=== PATIENT | male | born 1975 | race Caucasian/White ===

== ENCOUNTER 2018-02-04 10:18 | Emergency (ER) | payer OTHER ==
[2018-02-04] MEDS ORDERED: ACETAMINOPHEN 325 MG TAB PO ONE (10:44)
--- NOTE | 2018-02-04 10:54 | Emergency Department Record ---
History of Present Illness - General Chief Complaint: Neck Injury/Pain Stated Complaint: NECK PAIN Time Seen by Provider: 02/04/18 10:37 Source: Patient Mode of Arrival: Ambulatory Limitations: No limitations - History of Present Illness Initial Comments: The patient is here due to L sided neck pain for 3 days. The pain got worse in the last 24 hours so the patient felt that he needed to come to the ER. The pain is an aching pain that mainly occurs with turning the head to the sides R> L. He denies any FARMER, posterior neck pain, CP, SOB, TERRI, or sweating. The patient does have mild L arm numbness ONLY with lying on his L side with his L arm underneath him. There is no hx of weakness, numbness, tingling, injury to the arms or legs. The patient was concerned about the artery in his neck so he decided to come to the ER. MD Complaint: Neck pain Onset/Timin -: Days(s) Place: Home Radiation: Other Severity: Moderate Severity scale (1-10): 6 Quality: Aching Consistency: Constant Improves With: Remaining still Worsens With: Movement of neck Treatments Prior to Arrival: None - Related Data Allergies Allergy/AdvReac Type Severity Reaction Status Date / Time No Known Drug Allergies Allergy Verified 02/04/18 10:30 Travel Screening - Travel/Exposure Within Last 30 Days Have you traveled within the last 30 days?: No Review of Systems Constitutional: Denies: Chills, Fever Eyes: Denies: Eye discharge ENT: Denies: Congestion Respiratory: Denies: Cough, Dyspnea Past Medical History - SOCIAL HISTORY Smoking Status: Never smoker Alcohol Use: None Drug Use: None - RESPIRATORY Hx Respiratory Disorders: No - CARDIOVASCULAR Hx Cardio Disorders: No - NEURO Hx Neuro Disorders: No - GI Hx GI Disorders: No - Hx Genitourinary Disorders: No - ENDOCRINE Hx Endocrine Disorders: No - MUSCULOSKELETAL Hx Musculoskeletal Disorders: Yes - PSYCH Hx Psych Problems: No - HEMATOLOGY/ONCOLOGY Hx Hematology/Oncology Disorders: No Family Medical History Any Significant Family History?: No Hx Heart Disease: Father, Grandparents Physical Exam - General General Appearance: Alert, Oriented x3, Cooperative, No acute distress - Head Head exam: Atraumatic, Normocephalic, Normal inspection Image of Face/Head: 1 - Area of pain and tenderness. There is no swelling, bruising, or erythema appreciated. - Eye Eye exam: Normal appearance, PERRL - ENT Throat exam: Normal inspection. negative: Tonsillar erythema, Tonsillar exudate - Neck Neck exam: Normal inspection, Full ROM, Tenderness (The pain is 100% reproducible to palpation of the lateral cervical muscle areas with the main tenderness over the SCM muscle.). negative: Lymphadenopathy, Meningismus - Respiratory Respiratory exam: Normal lung sounds bilaterally. negative: Respiratory distress - Cardiovascular Cardiovascular Exam: Regular rate, Normal rhythm, Normal heart sounds. negative : Diastolic murmur, Systolic murmur - GI/Abdominal GI/Abdominal exam: Soft, Normal bowel sounds. negative: Tenderness - Extremities Extremities exam: Normal inspection, Full ROM, Normal capillary refill, Other ( Radial pulses 2+ and equal bilaterally.). negative: Tenderness - Neurological Neurological exam: Alert, Normal gait, Oriented X3. negative: Abnormal gait, Altered, Motor sensory deficit - Psychiatric Psychiatric exam: negative: Anxious - Skin Skin exam: negative: Rash Course Vital Signs 02/04/18 10:30 Temperature 97.9 F Pulse Rate 70 Respiratory 20 Rate Blood Pressure 141/88 Pulse Ox 99 Medical Decision Making - Data Complexity MDM Data: Labs Ordered and/or Reviewed, X-Ray Ordered and/or Reviewed, EKG Ordered and/or Reviewed - Lab Data Result diagrams: 02/04/18 11:06 02/04/18 11:06 - EKG Data -: EKG Interpreted by Me EKG: No Acute Changes, Normal EKG - Radiology Data Radiology results: Report reviewed (Carotid Dopplers: Normal per Rad.) Disposition Disposition: Discharge Clinical Impression: Neck pain on left side Disposition: Home, Self-Care Condition: (2) Stable Instructions: Muscle Strain (ED) Additional Instructions: Please continue the Tylenol for pain and see your family doctor for recheck next week. Please return to the ER for any worsening pain, weakness, numbness or any fever. Forms: Patient Portal Access Time of Disposition: 13:55 Quality - Quality Measures Quality Measures: N/A - Blood Pressure Screening View Details: Yes Does Patient Have Any of the Following: No Blood Pressure Classification: Pre-Hypertensive BP Reading Systolic Measurement: 125 Diastolic Measurement: 80 Screening for High Blood Pressure: < Pre-Hypertensive BP, F/U Documented > [ [id number]] Pre-Hypertensive Follow-up Interventions: Referral to alternative/primary care provider.
[2018-02-04 11:18] LABS: BASO % 0.7 % (0-6); EOS % 1.8 % (0-6); GRAN % 48.8 % (47-80); HEMATOCRIT 43.2 % (42.0-52.0); HEMOGLOBIN 14.4 gm/dl (14.0-18.0); MEAN CELL VOLUME 89.1 fl (81-97); MEAN CORPUSCULAR HEMOGLOBIN 29.7 pg (27-33); MEAN CORPUSCULAR HGB CONC 33.3 g/dl (32-36); MEAN PLATELET VOLUME 10.3 fl (7.4-10.4); MONO % 11.7 % (0-9); PLATELET COUNT 256 K/uL (130-400); RED BLOOD COUNT 4.85 M/uL (4.40-5.70); RED CELL DISTRIBUTION WIDTH 13.1 % (11.5-14.5); WHITE BLOOD COUNT W/O DIFF 4.5 K/uL (4.2-12.2)
[2018-02-04 11:29] LABS: BLOOD UREA NITROGEN 15 mg/dL (6-20); EST GLOMERULAR FILTRATION RATE > 60 mL/min
[2018-02-04 11:32] LABS: GLUCOSE,RANDOM 96 mg/dL (74-109)
[2018-02-04 11:35] LABS: CREATINE PHOSPHOKINASE 98 U/L (39-308)
[2018-02-04 11:37] LABS: CKMB 1.3 ng/mL (<6.73)
--- NOTE | 2018-02-06 10:51 | US CAROTID DOPPLER REPORT ---
DATE: 02/04/2018. EXAM: BILATERAL CAROTID DOPPLER ULTRASOUND HISTORY: Bed rest, back pain, tingling in the left arm. TECHNIQUE: Transverse longitudinal sonographic images of the cervical portions of the bilateral carotid arteries were obtained. Doppler and spectral analysis with color flow was utilized. COMPARISON: None. FINDINGS: All internal carotid artery percent stenoses are calculated using the distal internal carotid artery diameter as the denominator. However, there are no visible areas of atheromatous narrowing or thrombus formation to either common or internal carotid artery. Normal biphasic and triphasic waveforms are present bilaterally. Velocities are as follows (in peak systolic velocity): 3 Vessel Right Left Internal Carotid Artery 60 cm/s 65 cm/s Common Carotid Artery 65 cm/s 84 cm/s External Carotid Artery 52 cm/s 52 cm/s Vertebral Artery 55 cm/s 47 cm/s Right internal carotid artery to common carotid ratio: 0.9. Left internal carotid artery to common carotid ratio: 0.8. IMPRESSION: NORMAL CAROTID ULTRASOUND. JOB NUMBER: [id number] MTDD
== END 2018-02-04 14:12 | disposition home or self-care (01) ==
LOC: ER 10:18
DX: M54.5 Low back pain (principal); R20.0 Anesthesia of skin
CPT/HCPCS: 80048; 82550; 82553; 84484; 85025; 93005; 93010; 93880; 99284